=== PATIENT | female | born 1985 | race Hispanic/Latino ===

== ENCOUNTER 2017-10-25 11:07 | Emergency (ER) | payer OTHER ==
[~2017-10-25] VITALS: Ht 154.9 cm; Wt 55.3 kg
[2017-10-25 12:04] LABS: BILIRUBIN,URINE NEGATIVE (NEGATIVE); KETONES,URINE NEGATIVE (NEGATIVE); LEUKOCYTE ESTERASE ,URINE NEGATIVE (NEGATIVE); NITRITE,URINE NEGATIVE (NEGATIVE); PROTEIN,URINE DIPSTICK NEGATIVE (NEGATIVE); URINE UROBILINOGEN 0.2 mg/dL (0.2 - 1)
[2017-10-25 12:08] LABS: PREGNANCY TEST, URINE NEGATIVE (NEGATIVE)
[2017-10-25 12:23] LABS: CLARITY,URINE CLEAR (CLEAR); COLOR,URINE YELLOW (YELLOW)
[2017-10-25 12:24] LABS: EPITHELIAL CELLS,URINE FEW /LPF; RBC,URINE 0-5 /HPF (0-5); WBC,URINE (MAN) 0-5 /HPF (0-5)
== END 2017-10-25 13:34 | disposition home or self-care (01) ==
LOC: ER 11:07
DX: R07.89 Other chest pain (principal)
CPT/HCPCS: 81001; 81025; 87086; 93005; 99283